=== PATIENT | male | born 1960 | race Caucasian/White ===

== ENCOUNTER 2019-01-15 06:31 | Inpatient (IN) | payer BC ==
[2019-01-15] VITALS (17 sets, daily range): BP systolic 77–158; BP diastolic 48–129
[~2019-01-15] VITALS: Ht 177.8 cm; Wt 90.7 kg
--- NOTE | 2019-01-15 06:40 | NUR ---
Dr. Paris at bedside for MSE.
[2019-01-15] MEDS ORDERED: [UNRECOGNIZED DRUG - REMARK] (06:47)
[2019-01-15] MEDS ORDERED: [UNRECOGNIZED DRUG - REMARK] (06:47)
[2019-01-15] MEDS ORDERED: ONDANSETRON 4 MG/2 ML VIAL ONE (06:53)
--- NOTE | 2019-01-15 06:54 | NUR ---
Xray at bedside.
[2019-01-15 06:57] LABS: BASOPHILS % (AUTO) 0.2 % (0.0-2.0); EOSINOPHILS # (AUTO) 0.1 K/uL (0.0-0.7); EOSINOPHILS % (AUTO) 0.6 % (0.0-7.0); HEMATOCRIT 49.5 % (36.7-47.1); HEMOGLOBIN 17.3 g/dL (12.5-16.3); LYMPHOCYTES # (AUTO) 1.9 K/uL (20.0-40.0); LYMPHOCYTES % (AUTO) 16.3 % (20.5-51.5); MEAN CORPUSCULAR HEMOGLOBIN 30.1 uug (23.8-33.4); MEAN CORPUSCULAR HGB CONC 35 g/dL (32.5-36.3); MEAN CORPUSCULAR VOLUME 86.1 fL (73.0-96.2); MONOCYTES # (AUTO) 0.6 K/uL (2.0-10.0); MONOCYTES % (AUTO) 4.9 % (0.0-11.0); NEUTROPHILS # (AUTO) 8.9 K/uL (1.8-8.9); PLATELET COUNT (AUTO) 300 K/uL (152-348); RED BLOOD CELL COUNT(AUTO) 5.75 MIL/uL (4.06-5.63); WHITE BLOOD COUNT (AUTO) 11.4 K/uL (3.6-10.2)
[2019-01-15] MEDS ORDERED: ONDANSETRON 4 MG/2 ML VIAL IV ONE (07:00)
[2019-01-15] MEDS ORDERED: IV NORMAL SALINE 1000 ML BAG IV ONE (07:00)
[2019-01-15 07:03] LABS: CARBON DIOXIDE 26 mmol/L (21-32); CHLORIDE 104 mmol/L (98-107); GLUCOSE 197 mg/dL (74-106); POTASSIUM 3.8 mmol/L (3.5-5.1); UREA NITROGEN, BLOOD 16 mg/dL (7-18)
--- NOTE | 2019-01-15 07:04 | NUR ---
Report given to Jase monte.
[2019-01-15 07:09] LABS: ALANINE AMINOTRANSFERASE 678 U/L (16-63); ALKALINE PHOSPHATASE 221 U/L (50-136); ASPARTATE AMINOTRANSFERASE 445 U/L (15-37); BILIRUBIN,DIRECT 3.8 mg/dL (0.0-0.2); BILIRUBIN,TOTAL 4.8 mg/dL (0.2-1.0); TOTAL PROTEIN, SERUM 7.8 g/dL (6.4-8.2)
[2019-01-15] MEDS ORDERED: HYDROMORPHONE 1 MG/1 ML DISP.SYRIN ONE ×2 (07:10→08:38)
[2019-01-15] MEDS ORDERED: HYDROMORPHONE 1 MG/1 ML DISP.SYRIN IV ONE ×2 (07:15→08:30)
[2019-01-15 07:22] LABS: LIPASE > 6000 U/L (73-393)
[2019-01-15 07:23] LABS: ACETAMINOPHEN < 2.0 ug/mL (10-30)
[2019-01-15 07:31] LABS: ETHANOL < 3 MG/DL (0-0)
[2019-01-15 09:08] LABS: *BILIRUBIN,URIN 1+ (NEGATIVE); *CLARITY,URINE CLEAR (CLEAR); *COLOR,URINE YELLOW (YELLOW); *KETONES,URINE NEGATIVE (NEGATIVE); LEUKOCYTE ESTERASE ,URINE NEGATIVE (NEGATIVE); NITRITE, URINE NEGATIVE (NEGATIVE); PH,URINE 5.5 (5.0-8.0); UGLUCOSE 1+ (NEGATIVE)
--- NOTE | 2019-01-15 09:11 | NUR ---
REPORT WAS GIVEN TO RN M/S. PT WAS TRANSFERED TO ROOM #319.
[2019-01-15 09:12] LABS: *AMPHETAMINE, URINE NEGATIVE (NEGATIVE); *BARBITURATE, URINE NEGATIVE (NEGATIVE); *CANNABINOID, URINE NEGATIVE (NEGATIVE); *COCCAINE, URINE NEGATIVE (NEGATIVE); *OPIATE, URINE NEGATIVE (NEGATIVE); *PHENCYCLIDINE SCREEN,URINE NEGATIVE (NEGATIVE)
[2019-01-15 09:14] LABS: *BLOOD, URINE TRACE (NEGATIVE)
--- NOTE | 2019-01-15 09:39 | NUR ---
patient recieved from [facility] with dx of acute pancreatitis and abdominal pain. fixed in bed and made comfortable
[2019-01-15 09:44] LABS: BACTERIA,URINE FEW /HPF (NONE SEEN); RBC,URINE 0-3 /HPF (0-3); SQUAMOUS EPITHELIAL CELL,UR FEW /HPF (NONE SEEN); WBC,URINE 0-3 /HPF (0-3)
--- NOTE | 2019-01-15 10:31 | NUR ---
MIGEL KHALIL IN AND INFORMED ABOUT THE PATIENTS NEED ADMISSION ORDERS AND IS AWARE. INFORMED ABOUT THE PATIENT REQUEST FOR WATER AND FOOD. AWAITING FOR ORDERS.
[2019-01-15] MEDS ORDERED: ONDANSETRON 4 MG/2 ML VIAL IV PRN (10:45)
[2019-01-15] MEDS ORDERED: Z GUARD REMEDY PASTE 57 GM TUBE TOP PRN (10:45)
[2019-01-15] MEDS ORDERED: IV NS 1000 ML 1,000 ML IV ONE ×5 (10:45→23:00)
[2019-01-15] MEDS: HYDROMORPHONE 1 MG/1 ML DISP.SYRIN IV PRN ×2 (11:35→23:41)
--- NOTE | 2019-01-15 11:36 | NUR ---
PATIENT WITH COMPLAINTS OF PAIN TO THE ABDOMEN .DILAUDID 1 MG IVP GIVEN FOR PAIN.PLACED ON O2 AT 2L NASAL CANNULA
--- NOTE | 2019-01-15 14:00 | NUR ---
patient attempted to ambulate and fall backwards. rapid response team. called.assisted back to bed.rapid response team called and in.patient pklaced on a site monitor. Addendum: 01/15/19 at 1457 by MARTIN CANAS RN 1300 time
--- NOTE | 2019-01-15 14:42 | NUR ---
bp 78/50/ nsaline bolus started,patient is awake and responsive. ct scan department in and will bring the patient to ct scan department with the G[employer] MA[employer] LINE [employer]TER Addendum: 01/15/19 at 1456 by MARTIN CANAS RN [id number] time Addendum: 01/15/19 at 1503 by MARTIN CANAS RN error time 1456 blood sugar checked 162mg/dl
[2019-01-15] MEDS ORDERED: IV NS 1000 ML 1,000 ML IV PRN (14:45)
--- NOTE | 2019-01-15 14:55 | NUR ---
patient [facility] ct scan department for the ct scan of the brain s/p fall.
[2019-01-15 15:56] LABS: BASOPHILS % (AUTO) 0.1 % (0.0-2.0); HEMATOCRIT 49.5 % (36.7-47.1); HEMOGLOBIN 16.6 g/dL (12.5-16.3); LYMPHOCYTES # (AUTO) 0.6 K/uL (20.0-40.0); LYMPHOCYTES % (AUTO) 2.1 % (20.5-51.5); MEAN CORPUSCULAR HEMOGLOBIN 29.4 uug (23.8-33.4); MEAN CORPUSCULAR HGB CONC 34 g/dL (32.5-36.3); MEAN CORPUSCULAR VOLUME 87.6 fL (73.0-96.2); MONOCYTES # (AUTO) 1.4 K/uL (2.0-10.0); MONOCYTES % (AUTO) 5.1 % (0.0-11.0); NEUTROPHILS # (AUTO) 25.4 K/uL (1.8-8.9); NEUTROPHILS % (AUTO) 92.7 % (38.5-71.5); PLATELET COUNT (AUTO) 204 K/uL (152-348); RED BLOOD CELL COUNT(AUTO) 5.65 MIL/uL (4.06-5.63); WHITE BLOOD COUNT (AUTO) 27.4 K/uL (3.6-10.2)
[2019-01-15 16:01] LABS: POTASSIUM 4.4 mmol/L (3.5-5.1)
--- NOTE | 2019-01-15 16:01 | NUR ---
patient has not voided since in er and offered urinal currently and obtained 176ml/ Primary care physician called with the sisters phone and talked to the [facility] physician with the consent of the sister and the patient and given the telephone number of the GI consult Lelo Reyes, given the telephone number [phone] to communicate with the primary care physician and the gi.
[2019-01-15] MEDS ORDERED: PIPERACILLIN SODIUM/TAZOBACTAM 4.5 G in IV DEXTROSE 5% 50 ML IV SCH (16:30)
[2019-01-15 16:33] LABS: BAND % (MANUAL) 22 % (0-10); LYMPHOCYTES % (MANUAL) 2 % (20-40); MONOCYTES % (MANUAL) 5 % (2-10); NEUTROPHILS % (MANUAL) 71 % (42-75)
--- NOTE | 2019-01-15 16:40 | NUR ---
family in and the admission of [facility] called and asked for Dr Nunez contact number and given [phone] . Face needs to be faxed to [phone] for the admission process ,asked for the family service caseworker and no family service caseworker is on the case
--- NOTE | 2019-01-15 17:28 | NUR ---
face sheet faxed to the [facility]. patient is asleep withy sister at bedside
--- NOTE | 2019-01-15 17:39 | NUR ---
patient is complaining of abdominal pain 04/09 and requesting for pain medication. vital signs checkedand bp 102/[address] Nunez paged about the clarification if okay to give dilaudid with low bp parameters, patient had not voided since admission will inform MIGEL Nunez about it. Addendum: 01/15/19 at 1749 by MARTIN CANAS RN awaiting response of Dr Yip
[2019-01-15] MEDS ORDERED: PIPERACILLIN/TAZOBACTAM/D5W 3.375 G in PREMIXED 1 EACH IV SCH (18:00)
--- NOTE | 2019-01-15 18:40 | NUR ---
patient bp on the 70,s again and dilaudid cannot be given, rapid response called for low blood pressure. awaiting for Dr Nunez to call back
[2019-01-15] MEDS ORDERED: IV NORMAL SALINE 500 ML IV ONE (19:00)
--- NOTE | 2019-01-15 19:00 | NUR ---
IN AND OUT CATHETER DONE ASEPTICALLY AND OBTAINED 500 ML OF WITH DARK COLOR URINE WITH LOTS OF PARTICLES, URINE SPECIMEN FOR URINE CULTURE COLLECTED AND GIVEN TO THE CHARGE NURSE
--- NOTE | 2019-01-15 19:22 | NUR ---
RECEIVED PATIENT VIA BED , PATIENT AAOX4,MAEX4. 02 AT 3 L/MIN TOLERATING 02 NO RESPIRATORY DISTRESS NOTED RR 25 SATURATION 96 % , BP 88/58 RECYCLE 90/62 HR 93 RR 14 SATURATION 98% DENIES PAIN AT THIS TIME .WILL CONTINUE TO MONITOR V/S AND LEVELS OF COMFORT .
--- NOTE | 2019-01-15 19:24 | NUR ---
report given to Marika the icu nurse for the transfer,
[2019-01-15 19:31] LABS: *BILIRUBIN,URIN 2+ (NEGATIVE); *BLOOD, URINE 3+ (NEGATIVE); *CLARITY,URINE CLOUDY (CLEAR); *KETONES,URINE NEGATIVE (NEGATIVE); LEUKOCYTE ESTERASE ,URINE NEGATIVE (NEGATIVE); NITRITE, URINE NEGATIVE (NEGATIVE); PH,URINE 5.5 (5.0-8.0); UGLUCOSE TRACE (NEGATIVE)
[2019-01-15 19:36] LABS: *COLOR,URINE Brown (YELLOW)
[2019-01-15] MEDS: IV D5/ 0.9% NACL 1,000 ML IV PRN ×2 (19:37→23:17)
[2019-01-15 19:41] LABS: COARSE GRANULAR CASTS,URINE 0-3 /LPF; URINE AMORPHOUS URATE MANY /HPF; WBC,URINE 0-3 /HPF (0-3)
[2019-01-15 19:42] LABS: MUCUS,URINE MODERATE /LPF (0-FEW)
[2019-01-15] MEDS ORDERED: MEROPENEM 1 G in IV NORMAL SALINE 100 ML IV SCH ×2 (19:45→21:00)
[2019-01-15] MEDS ORDERED: NOREPINEPHRINE BITARTRATE 8 MG in IV DEXTROSE 5% 500 ML IV PRN ×2 (19:45→20:00)
--- NOTE | 2019-01-15 20:30 | NUR ---
INSERTED F/C DONE ASEPTICALLY ,NO 16.PATIETN TOLERATED PROCEDURE . PATIENT SISTER AT BEDSIDE.
--- NOTE | 2019-01-15 21:51 | NUR ---
back form CT - TOLERATED CT OF THE ABDOMEN.
--- NOTE | 2019-01-15 22:00 | NUR ---
DR:YAA CALLED AND WANTS THE PATIENT TO BE TRANSFER TO HIGHER LEVEL OF CARE FOR POSSIBLE ERCP . MD MON SPOKED WITH PATIENT SISTER JANET VIA PHONE .
[2019-01-15] MEDS ORDERED: [UNRECOGNIZED DRUG - CODE] IV (22:23)
[2019-01-15] MEDS ORDERED: MERO1VIA IV (22:23)
[2019-01-15] MEDS ORDERED: ONDA4VIA23 IV (22:23)
[2019-01-15] MEDS ORDERED: HYDR1DIS2 IV (22:23)
[2019-01-15] MEDS ORDERED: NORM10VI2 IV (22:23)
[2019-01-15] MEDS ORDERED: ENOXAPARIN SODIUM 40 MG/0.4 ML DISP.SYRIN SQ SCH (22:30)
--- NOTE | 2019-01-15 22:30 | NUR ---
PATIENT REQUESTING FOR WATER ADVISED HIS NPO .
--- NOTE | 2019-01-15 22:35 | NUR ---
TOLERATED CENTRAL LINE PLACEMENT CALLED FOR STAT XRAY.
--- NOTE | 2019-01-15 22:41 | NUR ---
TRANSFER [facility] IN [facility] CALLED PATIENT IS ACCEPTED AND GOING TO ROOM 7S50,SPOKED TO [facility] # [phone] . THE ACCEPTING DOCTOR IS TARA BOYER .NEED COPY OF THE CHART , CONSENT ,D/C SUMMARY ,CD AND MEDICATION LIST .
--- NOTE | 2019-01-15 23:06 | NUR ---
CENTRAL VENOUS CATHETER INSERTION Patient has order to insert cvc. Informed consent is signed and in chart. Insertion site determined to be right internal jugular vein. Patient was prepped using sterile technique with chlorhexidine. Patient was covered with a sterile drape and i donned a sterile gown. The insertion site was anesthetized with 1% lidocaine. Needle inserted under ultrasound guidance. Guidewire inserted through needle and needle removed. Small nubia made at insertion site of approximately 2 mm. Dilator inserted over guidewire then removed. Catheter inserted fully over guidewire. Guidewire removed. Blood return at all 3 ports. Valved caps placed on each port. Catheter secured with 2 sutures. Biopatch placed and covered with tegaderm. No s/s of complication. Chest xray ordered. Line positioned properly.
--- NOTE | 2019-01-15 23:15 | NUR ---
CALLED DOCTOR YAA AND DICTATED CT SCAN RESULTS .
--- NOTE | 2019-01-15 23:30 | NUR ---
PATIENT VERBALIZED SOB INFORMED SATURATION IS 95 TO 96 % RR 25 TO 25 ,WANT MORE OXYGEN PLACED O2 TO 5 L/MIN . HOB UP.
--- NOTE | 2019-01-15 23:41 | NUR ---
GIVEN PRN PAIN MEDICATION DILAUDID PER REQUEST FOR ABDOMEN PAIN 6 OVER 10,ABDOMEN AREA TENDER TO TOUCH AND DISTENDED + BS X4.
[2019-01-16] VITALS (13 sets, daily range): BP systolic 77–104; BP diastolic 46–63
--- NOTE | 2019-01-16 00:30 | NUR ---
SPOKED WITH MIGEL MARTINEZ AND DICTATED ALL LABS AND CT RESULTS WITH ORDERS STAT LABS AND ABG .
[2019-01-16 01:16] LABS: ABG BASE EXCESS -11.1 mmol/L; ABG HCO3 15.9 mmol/L; ABG PCO2 39.6 mmHg (35.0-45.0); ABG PH 7.222 (7.350-7.450); ABG PO2 82.7 mmHg (75.0-100.0); ABG SITE LEFT RADIAL; ABG TOTAL HEMOGLOBIN 14.7 G/dL (13.5-18.0); COHb 2.3 % (0.5-1.5); MetHb 0.5 % (0.0-1.5); O2Hb 92.2 % (94.0-97.0); VENT MODE Nasal Cannula
[2019-01-16 01:30] LABS: BILIRUBIN,DIRECT 10.7 mg/dL (0.0-0.2); BILIRUBIN,TOTAL 11.8 mg/dL (0.2-1.0)
[2019-01-16 01:32] LABS: BILIRUBIN,DIRECT 10.5 mg/dL (0.0-0.2); BILIRUBIN,TOTAL 11.8 mg/dL (0.2-1.0); TOTAL PROTEIN, SERUM 4.7 g/dL (6.4-8.2)
--- NOTE | 2019-01-16 02:39 | NUR ---
TARA BOWERS CALLED BACK AND DICTATED ABG RESULTS . PATIENT ON 5 LITERS /MIN AND NOT IN RESPIRATORY DISTRESS SATURATION 95%,RR 24. HOB UP . NO ORDERS MADE ,TO CONTINUE TO MONITOR FOR RESPIRATORY DISTRESS
--- NOTE | 2019-01-16 02:41 | NUR ---
CALLED AMBULANCE AND THEY WILL BE HERE IN 20 MINUTES .STARTED NORMAL SALINE AT 250 ML/HR PER MD: YAA HE WANTS NORMAL SALINE 250 ML /HR DURING TRANSFER .
--- NOTE | 2019-01-16 03:09 | NUR ---
REPORT GIVEN TO RN ILIANA MANTILLA,USING SBAR AT BEDSIDE .PATIENT SISTER AT BEDSIDE AND SIGN TRANSFER PAPERS .PATIENT AAOX4 AND AWARE ABOUT THE TRANSFER . COPY OF CHART ,CD WENT WITH PATIENT ,NO BELONGINGS ALL BELONGINGS GIVEN TO PATIENT SISTER JANET .BP93/56 HR 112 , SATURDAY 95% RR 25. PAIN ONLY WHEN HE MOVE ABDOMEN AREA, SORE 5-6. PATIENT GOING TO [facility] ROOM 7s50
--- NOTE | 2019-01-16 03:35 | NUR ---
patient discharge to [facility] ,higher level of care .went via [facility] .
== END 2019-01-16 03:35 | disposition short-term general hospital (02) | DRG 871 ==
LOC: ER 06:34 → MEDSURG3 09:09 → TELE3 14:53 → CCU 19:13
PROVIDERS: ADMIT Nurse Practitioner Acute Care; ATTEND Nurse Practitioner Acute Care
PROC: 02HV33Z Insertion of Infusion Device into Superior Vena Cava, Percutaneous Approach (ICD-10-PCS; principal; 2019-01-15)
DX: A41.9 Sepsis, unspecified organism (principal); K85.10 Biliary acute pancreatitis without necrosis or infection; R65.21 Severe sepsis with septic shock; N17.0 Acute kidney failure with tubular necrosis; R73.9 Hyperglycemia, unspecified; Z86.14 Personal history of Methicillin resistant Staphylococcus aureus infection; Z86.718 Personal history of other venous thrombosis and embolism; K40.20 Bilateral inguinal hernia, without obstruction or gangrene, not specified as recurrent; K42.9 Umbilical hernia without obstruction or gangrene; K57.30 Diverticulosis of large intestine without perforation or abscess without bleeding; K76.0 Fatty (change of) liver, not elsewhere classified; E78.5 Hyperlipidemia, unspecified; E66.3 Overweight; Z80.9 Family history of malignant neoplasm, unspecified; Z82.49 Family history of ischemic heart disease and other diseases of the circulatory system; K80.20 Calculus of gallbladder without cholecystitis without obstruction; Z91.81 History of falling; R55 Syncope and collapse
CPT/HCPCS: 36415; 36600; 70030-TC; 70450; 71045; 80307; 83605; 83615; 83690; 85025; 87086; 93005; A4663; C1758; G0378; G0480; G0480-TC; J1170; J1650; J2185; J2405; J2543; J3490; J7030; J7040; J7060